=== PATIENT | male | born 1950 | race Hispanic/Latino ===

== ENCOUNTER 2019-05-28 10:59 | Emergency (ER) | payer OTHER ==
[2019-05-28 11:48] LABS: Basophils % 0.6 % (0-1.3); Eosinophils % 3.4 % (0-4.4); Hematocrit 43.6 % (39.6-49.0); Lymphocytes % 31.9 % (15.3-44.8); MPV 8.7 fL (7.6-11.3); Monocytes % 7.8 % (3.3-12.3)
[2019-05-28 11:50] LABS: Protime INR 0.99
--- NOTE | 2019-05-28 11:54 | RAD REPORT ---
EXAM DESCRIPTION: Eulalia Single View05/28/2019 11:45 am CLINICAL HISTORY: Chest pain COMPARISON: none FINDINGS: The lungs appear clear of acute infiltrate. The heart is normal size IMPRESSION: No acute abnormalities displayed
[2019-05-28 12:05] LABS: ALT/SGPT 35 U/L (12-78); AST/SGOT 18 U/L (15-37); Albumin 4.4 g/dL (3.4-5.0); Alkaline Phosphatase 81 U/L (45-117); BUN Blood Urea Nitrogen 17 mg/dL (7-18); Bicarbonate 30 mmol/L (21-32); Bilirubin Direct 0.1 mg/dL (0-0.2); Bilirubin Total 0.5 mg/dL (0.2-1.0); Glucose Level 96 mg/dL (74-106); Magnesium 2.4 mg/dL (1.8-2.4); NT PRO-BNP 16 pg/mL (<125); Potassium 4.3 mmol/L (3.5-5.1); Protein, Total 8.3 g/dL (6.4-8.2); Sodium Level 144 mmol/L (136-145); Troponin (Emerg Dept Use Only) < 0.02 ng/mL (0.0-0.045)
--- NOTE | 2019-05-28 14:08 | ER ---
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 Transition of care: patient was not received from another setting of care. Onset of symptoms was May 28, 2019. Risk Assessment: Do you want to hurt yourself or someone else? Patient reports no desire to harm self or others. Initial Sepsis Screen: Does the patient meet any 2 criteria? No. Patient's initial sepsis screen is negative. Does the patient have a suspected source of infection? No. Patient's initial sepsis screen is negative. Care prior to arrival: None. 11:03 Method Of Arrival: Ambulatory 11:03 Acuity: FANI 3 hj Historical: - Allergies: 11:07 No Known Allergies; hj - PMHx: 11:07 Hyperlipidemia; hj - PSHx: 11:07 Heart stents; hj - Immunization history:: Adult Immunizations up to date. - Ebola Screening: : Patient denies travel to an Ebola-affected area in the 21 days before illness onset. - Social history:: Smoking status: unknown. Screenin:34 Abuse screen: Denies threats or abuse. Denies injuries from another. Nutritional aj1 screening: No deficits noted. Tuberculosis screening: No symptoms or risk factors identified. 14:47 Fall Risk None identified. aj1 Assessment: 11:34 General: Appears in no apparent distress. comfortable, Behavior is calm, cooperative, aj1 appropriate for age. Pain: Complains of pain in anterior aspect of right upper chest Pain does not radiate. Pain currently is 1 out of 10 on a pain scale. Quality of pain is described as sharp, Pain began 1 hour ago. Neuro: Level of Consciousness is awake, alert, obeys commands, Oriented to person, place, time, situation. Cardiovascular: Reports chest pain, that has now resolved Heart tones S1 S2 present Patient's skin is warm and dry. Rhythm is sinus rhythm. Respiratory: Airway is patent Respiratory effort is even, unlabored, Respiratory pattern is regular, symmetrical, Breath sounds are clear bilaterally. GI: No signs and/or symptoms were reported involving the gastrointestinal system. : No signs and/or symptoms were reported regarding the genitourinary system. EENT: No signs and/or symptoms were reported regarding the EENT system. Derm: No signs and/or symptoms reported regarding the dermatologic system. Skin is pink, warm \T\ dry. normal. Musculoskeletal: No signs and/or symptoms reported regarding the musculoskeletal system. Circulation, motion, and sensation intact. 12:30 Reassessment: Patient appears in no apparent distress at this time. No changes from 1 previously documented assessment. Patient and/or family updated on plan of care and expected duration. Pain level reassessed. Patient is alert, oriented x 3, equal unlabored respirations, skin warm/dry/pink. 14:05 Reassessment: Patient appears in no apparent distress at this time. No changes from aj1 previously documented assessment. Patient and/or family updated on plan of care and expected duration. Pain level reassessed. Patient is alert, oriented x 3, equal unlabored respirations, skin warm/dry/pink. Vital Signs: 11:07 BP 133 / 72; Pulse 77; Resp 18; Temp 98.1(O); Pulse Ox 97% on R/A; Weight 117.48 kg; Height 5 ft. 8 in. (172.72 cm); Pain 1/10; 12:30 BP 141 / 92; Pulse 60; Resp 18; Pulse Ox 98% on R/A; aj1 14:05 BP 116 / 66; Pulse 58; Resp 18; Pulse Ox 99% on R/A; aj1 14:46 BP 110 / 68; Pulse 73; Resp 18; Temp 97.9; Pulse Ox 98% on R/A; aj1 11:07 Body Mass Index 39.38 (117.48 kg, 172.72 cm) ED Course: 11:01 Patient arrived in ED. mr 11:05 Triage completed. 11:07 Arm band placed on right wrist. 11:22 Sri Og, RN is Primary Nurse. [facility] 11:24 Inserted saline lock: 20 gauge in right antecubital area, using aseptic technique. Blood collected. 11:29 Nader Waters MD is Attending Physician. ps1 11:34 Patient has correct armband on for positive identification. side laster staple on. Pulse aj1 ox on. NIBP on. 11:34 No provider procedures requiring assistance completed. Patient maintains SpO2 aj1 saturation greater than 95% on room air. 11:45 X-ray completed. Portable x-ray completed in exam room. Patient tolerated procedure jb2 well. 11:46 XRAY Chest (1 view) In Process Unspecified. EDMS 13:35 Repeat lab(s) drawn. by me, sent to lab. jp3 13:40 Troponin (emerg Dept Use Only) Sent. jp3 14:49 IV discontinued, intact, bleeding controlled, No redness/swelling at site. Pressure mg2 dressing applied. Administered Medications: No medications were administered Outcome: 14:07 Discharge ordered by MD. ps1 14:50 Discharged to home ambulatory. mg2 14:50 Condition: stable 14:50 Discharge instructions given to patient, Instructed on discharge instructions, follow up and referral plans. Demonstrated understanding of instructions, follow-up care. 14:50 Patient left the ED. mg2 Signatures: Dispatcher [employer] EDTX Sir Og RN RN aj1 Lou Arriaga Jesse jb2 Cristal Mcgregor RN RN ss Marcial Kendall RN RN hj Singer, Phillip, MD MD ps1 Michel Mejia RN RN mg2 Zi Son jp3 Corrections: (The following items were deleted from the chart) 11:08 11:03 Presenting complaint: Patient states: we were loading stuff on the trailer half hj an hour ago, around that time, i felt a chest pain like the same as when i had a heart attack, i feel SOB; reports nausea; 13:03 13:03 Reassessment: Patient appears in no apparent distress at this time. No changes aj1 from previously documented assessment. Patient and/or family updated on plan of care and expected duration. Pain level reassessed. Patient is alert, oriented x 3, equal unlabored respirations, skin warm/dry/pink. aj1
--- NOTE | 2019-05-28 14:08 | EDPHYS ---
Physician Documentation [facility] Name: Song Mcgill Age: 68 yrs Sex: Male : 1950 Arrival Date: 05/28/2019 Time: 11:01 Bed 26 Private MD: NATHAN Physician Nader Waters HPI: 05/28 11:44 This 68 yrs old Male presents to ER via Ambulatory with complaints of Chest ps1 Pain, Dizziness. 11:44 This 68 yrs old Male presents to ER via Ambulatory with complaints of Chest ps1 Pain.. 11:44 hx of CAD, HLD at work today performing exertion. CP localized substernal wo radiation. ps1 Lasted <5 minutes. Now asymptomatic. Improved after getting into AC in car. Hx of "small AMI" 13 years ago. Not associated with diaphoresis, BRAEDEN, leg swelling, or palpitations. . Historical: - Allergies: 11:07 No Known Allergies; hj - PMHx: 11:07 Hyperlipidemia; hj - PSHx: 11:07 Heart stents; hj - Immunization history:: Adult Immunizations up to date. - Ebola Screening: : Patient denies travel to an Ebola-affected area in the 21 days before illness onset. - Social history:: Smoking status: unknown. ROS: 11:44 Constitutional: Negative for fever, chills, and weight loss, Eyes: Negative for injury, ps1 pain, redness, and discharge, ENT: Negative for injury, pain, and discharge, Respiratory: Negative for shortness of breath, cough, wheezing, and pleuritic chest pain, Abdomen/GI: Negative for abdominal pain, nausea, vomiting, diarrhea, and constipation, MS/Extremity: Negative for injury and deformity, Skin: Negative for injury, rash, and discoloration, Neuro: Negative for headache, weakness, numbness, tingling, and seizure. 11:44 Cardiovascular: Positive for chest pain. Exam: 11:44 Constitutional: This is a well developed, well nourished patient who is awake, alert, ps1 and in no acute distress. Head/Face: Normocephalic, atraumatic. Eyes: Pupils equal round and reactive to light, extra-ocular motions intact. Lids and lashes normal. Conjunctiva and sclera are non-icteric and not injected. Chest/axilla: Normal chest wall appearance and motion. Nontender with no deformity. No lesions are appreciated. Respiratory: Lungs have equal breath sounds bilaterally, clear to auscultation and percussion. No rales, rhonchi or wheezes noted. No increased work of breathing, no retractions or nasal flaring. Abdomen/GI: Soft, non-tender, with normal bowel sounds. No distension or tympany. No guarding or rebound. No evidence of tenderness throughout. Skin: Warm, dry with normal turgor. Normal color with no rashes, no lesions, and no evidence of cellulitis. MS/ Extremity: Pulses equal, no cyanosis. Neurovascular intact. Full, normal range of motion. Neuro: Awake and alert, GCS 15, oriented to person, place, time, and situation. Cranial nerves II-XII grossly intact. Sensory grossly intact. 11:44 Cardiovascular: Rate: normal, Rhythm: regular, Pulses: no pulse deficits are appreciated. Vital Signs: 11:07 BP 133 / 72; Pulse 77; Resp 18; Temp 98.1(O); Pulse Ox 97% on R/A; Weight 117.48 kg; hj Height 5 ft. 8 in. (172.72 cm); Pain 1/10; 12:30 BP 141 / 92; Pulse 60; Resp 18; Pulse Ox 98% on R/A; aj1 14:05 BP 116 / 66; Pulse 58; Resp 18; Pulse Ox 99% on R/A; aj1 14:46 BP 110 / 68; Pulse 73; Resp 18; Temp 97.9; Pulse Ox 98% on R/A; aj1 11:07 Body Mass Index 39.38 (117.48 kg, 172.72 cm) MDM: 11:43 Patient medically screened. ps1 14:07 Data reviewed: vital signs, nurses notes, lab test result(s), radiologic studies, and ps1 as a result, I will discharge patient. Counseling: I had a detailed discussion with the patient and/or guardian regarding: the historical points, exam findings, and any diagnostic results supporting the discharge/admit diagnosis, lab results, radiology results, the need for outpatient follow up, to return to the emergency department if symptoms worsen or persist or if there are any questions or concerns that arise at home. ED course: delta trop negative. Asymptomatic. Stable for discharge with cards follow up. . 05/28 11:23 Order name: Basic Metabolic Panel aj1 07/01 11:23 Order name: CBC with Diff 05/28 11:23 Order name: LFT's 05/28 11:23 Order name: Magnesium; Complete Time: 12:07 05/28 11:23 Order name: NT PRO-BNP; Complete Time: 12:07 05/28 11:23 Order name: PT-INR; Complete Time: 12:02 05/28 11:23 Order name: Troponin (emerg Dept Use Only); Complete Time: 12:07 05/28 11:23 Order name: XRAY Chest (1 view); Complete Time: 12:02 05/28 11:23 Order name: EKG; Complete Time: 11:26 05/28 11:23 Order name: Cardiac monitoring; Complete Time: :34 05/28 11:24 Order name: Basic Metabolic Panel; Complete Time: 12:07 [facility] 05/28 11:25 Order name: CBC with Automated Diff; Complete Time: 12:02 [facility] 05/28 11:25 Order name: Liver (Hepatic) Function; Complete Time: 12:07 [facility] 05/28 13:08 Order name: Troponin (emerg Dept Use Only); Complete Time: 14:05 [facility] 05/28 11:23 Order name: EKG - Nurse/Tech; Complete Time: 11:34 05/28 11:23 Order name: IV Saline Lock; Complete Time: 11:34 05/28 11:23 Order name: Labs collected and sent; Complete Time: 11: 05/28 11:23 Order name: O2 Per Protocol; Complete Time: :05/28 11:23 Order name: O2 Sat Monitoring; Complete Time: 11:34 EC:03 Rate is 84 beats/min. Rhythm is regular. QRS [place] is Normal. [place] interval is normal. QRS ps1 interval is normal. QT interval is normal. No Q waves. T waves are Normal. No ST changes noted. Clinical impression: Normal ECG. Interpreted by me. Administered Medications: No medications were administered Disposition: 05/28/19 14:07 Discharged to Home. Impression: Chest pain, unspecified. - Condition is Stable. - Discharge Instructions: Nonspecific Chest Pain. - Medication Reconciliation Form, Thank You Letter, Antibiotic Education, Prescription Opioid Use form. - Follow up: Private Physician; When: 48 Hours; Reason: Further diagnostic work-up, Recheck today's complaints, Re-evaluation by your physician. Follow up: Emergency Department; When: As needed; Reason: Worsening of condition. - Problem is new. - Symptoms are resolved. Signatures: Dispatcher [employer] EDMS Sri Og RN RN aj1 Marcial Kendall RN RN hj Nader Waters MD MD ps1 Michel Mejia RN RN mg2 Corrections: (The following items were deleted from the chart) 14:50 14:07 05/28/2019 14:07 Discharged to Home. Impression: Chest pain, unspecified. mg2 Condition is Stable. Forms are Medication Reconciliation Form, Thank You Letter, Antibiotic Education, Prescription Opioid Use. Follow up: Private Physician; When: 48 Hours; Reason: Further diagnostic work-up, Recheck today's complaints, Re-evaluation by your physician. Follow up: Emergency Department; When: As needed; Reason: Worsening of condition. Problem is new. Symptoms are resolved. ps1
--- NOTE | 2019-05-28 19:43 | EKG ---
Test Date: 2019-05-28 Test Time: 11:03:52 Analog Circuit Designer: GARCIA MEASUREMENT RESULTS: Intervals: Rate: 84 OH: 164 QRSD: 100 QT: 386 QTc: 456 [place]: P: 63 OH: 164 QRS: -7 T: 46 INTERPRETIVE STATEMENTS: Normal sinus rhythm Normal ECG No previous ECG available for comparison Electronically Signed On 05-28-19 19:40:31 CDT by Nayan Downey
== END 2019-05-28 14:50 | disposition home or self-care (01) ==
LOC: ER 10:59
DX: R07.9 Chest pain, unspecified (principal); E78.5 Hyperlipidemia, unspecified; Z95.818 Presence of other cardiac implants and grafts
CPT/HCPCS: 36415; 71045; 80048; 80076; 83735; 83880; 84484; 85025; 85610; 93005; 99285

== ENCOUNTER → 2025-02-15 | Day surgery (SDC) | payer OTHER ==
[2025-02-13 09:29] LABS: Absolute Eosinophils 0.2 K/uL (0-0.5); Absolute Lymphocytes (CBC) 2.4 K/uL (0.7-4.9); Absolute Monocytes 0.5 K/uL (0.1-1.3); Absolute Neutrophil 3.4 K/uL (1.8-8.0); Basophils % 0.6 % (0-1.3); Eosinophils % 2.4 % (0-4.4); Hematocrit 40.2 % (39.6-49.0); Lymphocytes % 36.9 % (15.3-44.8); MCH 30.4 pg (27.0-35.0); MCHC 34.8 g/dL (32.0-36.0); MCV 87.3 fL (80-100); MPV 8.6 fL (7.6-11.3); Monocytes % 8.2 % (3.3-12.3); Neutrophils % 51.9 % (41.7-73.7); Nucleated Red Blood Cells % 0.1 % (0-0); Platelets 200 thou/uL (152-406); Red Cell Distribution Width 13.5 % (12.1-15.2)
[2025-02-13 09:40] LABS: Anion Gap 8.5 mEq/L (5.0-15.0); Potassium 4.5 mEq/L (3.5-5.1)
--- NOTE | 2025-02-13 12:26 | EKG ---
Test Date: 2025-02-13 Test Time: 08:43:54 Vehicle Operator: SONYA MEASUREMENT RESULTS: Intervals: Rate: 51 ND: 158 QRSD: 96 QT: 418 QTc: 385 [place]: P: 59 ND: 158 QRS: 7 T: 39 INTERPRETIVE STATEMENTS: Sinus bradycardia Nonspecific T wave abnormality Abnormal ECG No previous ECG available for comparison Electronically Signed On 02-13-25 12:24:40 CDT by Yehuda Matthews
[~2025-02-15] MED LIST: EPHEDRINE SULF 50 MG/ML VIAL ONE; FENTANYL CITR 100 MCG/2 ML ONE; LIDOCAINE 2% MPF 5 ML VIAL ONE; MIDAZOLAM HCL 2 MG/2 ML INJ ONE; ONDANSETRON 4 MG/2 ML VIAL ONE; dexAMETHasone 4 MG/ML VIAL ONE; propofoL 200 MG/20 ML VIAL IV ONE
[2025-02-15] MEDS: Ringers Lactate 1,000 ML IV ONE (08:08)
[2025-02-15] MEDS: CEFAZOLIN SODIUM 1 GM/VIAL ONE (09:02)
--- NOTE | 2025-02-15 10:07 | OP ---
Date of Procedure: 02/15/2025 Surgeon: Humphrey Castillo MD Preoperative Diagnosis: Left severe carpal tunnel syndrome. Postoperative Diagnosis: Left severe carpal tunnel syndrome. Procedure: Left open carpal tunnel release. Estimated Blood Loss: Less than 3 cc. Complications: There were no complications. Specimens: No pathology specimens sent. Indications For Operation: Mr. Mcgill is a 74-year-old gentleman who unfortunately is suffering with pain and numbness related to his left hand. 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 He was sent for neurological testing, which demonstrated severe carpal tunnel syndrome on the left. Ris ks, benefits, and alternatives of different methods of treating this have been discussed with the pat iejenniffer and at this time recommendation is for open carpal tunnel release because of the severity and po ssible slow recovery and return of function. He says he understands things as presented and wishes t o proceed. Description Of Procedure: The patient was taken to the operating room and placed in supine position. General anesthesia was easily obtained by the anesthesia staff. Following this, a well-padded tour niquet was placed on the superior left arm. Left upper extremity was then prepped and draped in usua l sterile fashion for the procedure. Following this, the arm was then elevated, but not exsanguinate d. Tourniquet was raised. A standard incision was made, which parallels the thenar crease with a zi gzag at the most distal wrist crease. This was taken down carefully through skin only. Meticulous h emostasis is being maintained using bipolar electrocautery. This was then continued to the palmar fa scia, which was divided longitudinally. Any obstructions over the transverse carpal ligament were ge ntly swept to the side and a small hira was made in the transverse carpal ligament for visualization of the underlying median nerve. The median nerve was visualized and this division was then carried f rom proximal to distal until there were no constricting bands. It was then carried from distal to pr oximal until there were no constricting bands with division of a fair amount of the forearm fascia. After this, the nerve was then examined. It was found to be somewhat purple throughout, but definite ly in continuity. The skin was then closed using nylon sutures. The patient was placed in a well-pa dded sterile dressing, awakened, and taken to recovery room in good condition. There were no complic ations. /NKECHI Voice ID: [id number] Report ID: [id number]
[2025-02-15 10:12] VITALS: O2SAT 98
[2025-02-15 11:01] VITALS: BP 134/69; TEMP 97.3
== END ==
LOC: OR 07:41 → MERGE 09:00
PROVIDERS: ATTEND Orthopaedic Surgery
PROC: 01N50ZZ Release Median Nerve, Open Approach (ICD-10-PCS; principal; 2025-02-15 09:00)
DX: G56.02 Carpal tunnel syndrome, left upper limb (principal); I25.10 Atherosclerotic heart disease of native coronary artery without angina pectoris; F41.9 Anxiety disorder, unspecified; Z86.73 Personal history of transient ischemic attack (TIA), and cerebral infarction without residual deficits
CPT/HCPCS: 93005; 85025; 80048; 36415; 64721; J2704; J1100; J2003; J2250; J3010; J2405; J7120; J0690